=== PATIENT | female | born 2000 | race Caucasian/White ===

== ENCOUNTER 2021-07-31 15:57 | Emergency (ER) | payer BC ==
[2021-07-31] MEDS ORDERED: FAMOTIDINE 20 MG TABLET PO STA (16:13)
[2021-07-31] MEDS ORDERED: predniSONE 20 MG TABLET PO STA (16:13)
[2021-07-31] MEDS ORDERED: EPINEPHrine 1 MG/ML AMP IM STA (16:13)
--- NOTE | 2021-07-31 16:18 | ED Physician Documentation ---
History of Present Illness - Stated complaint Stated Complaint: NAUSEA,SOA - Chief complaint Chief Complaint: Allergic Rx - History obtained from History obtained from: Patient - Additonal information Additional information: 21-year-old with nut allergy ate some sorbet and developed a scratchy throat, mild shortness of breath and eye redness about 40 minutes ago. She has an EpiPen but did not use it as it is . She did take Benadryl prior to arrival. She got nauseous and vomited on the way here. Review of Systems Constitutional: denies: Fever, Chills Cardiac: denies: Chest pain / pressure, Palpitations Respiratory: reports: Dyspnea. denies: Cough GI: reports: Nausea, Vomiting. denies: Abdominal Pain PD PAST MEDICAL HISTORY - Present Medications Home Medications: Ambulatory Orders Medication Instructions Recorded Confirmed EPINEPHrine [Epinephrine] 0.3 mg IJ ONCE PRN #2 dis.syr 07/31/21 predniSONE [Deltasone] 60 mg PO DAILY 5 Days #15 tablet 07/31/21 - Allergies Allergies/Adverse Reactions: Allergies Allergy/AdvReac Type Severity Reaction Status Date / Time lactase [From Dairy Aid] Allergy Itching Verified 07/31/21 16:03 nut - unspecified Allergy Emesis Verified 07/31/21 16:03 PD ED PE NORMAL - Vitals Vital signs reviewed: Yes - General General: Alert and oriented X 3, No acute distress - HEENT HEENT: Pharynx benign, Other (Bilateral beet red conjunctivitis) - Neck Neck: Supple, no meningeal sign, No bony TTP - Cardiac Cardiac: RRR, No murmur - Respiratory Respiratory: No respiratory distress, Clear bilaterally - Abdomen Abdomen: Normal bowel sounds, Soft, Non tender - Back Back: No CVA TTP, No spinal TTP - Derm Derm: Normal color, Warm and dry - Extremities Extremities: No edema, No calf tenderness / cord - Neuro Neuro: Alert and oriented X 3, Normal speech Results - Vitals Vitals: Vital Signs - 24 hr 07/31/21 07/31/21 07/31/21 16:03 16:36 17:06 Temperature 37.0 C Heart Rate 98 93 95 Respiratory 18 13 18 Rate Blood Pressure 122/89 H 132/86 H 130/74 O2 Saturation 99 100 95 07/31/21 07/31/21 07/31/21 17:30 18:00 18:23 Temperature Heart Rate 101 H 119 H 110 H Respiratory 16 24 Rate Blood Pressure 130/72 125/72 O2 Saturation 99 100 Oxygen O2 Source Room air PD MEDICAL DECISION MAKING - ED course ED course: Given the conjunctivitis, airway symptoms but no finding and nausea and vomiting she does fit the criteria for anaphylaxis and was attended to immediately and given 0.3 mg of epinephrine IM as well as oral prednisone and Pepcid noting she had already taken Benadryl on the way here. Her conjunctivitis and other symptoms resolved and she was observed for few hours without recurrence. Departure - Departure Disposition: 01 Home, Self Care Clinical Impression: Anaphylaxis Qualifiers: Encounter type: initial encounter Qualified Code(s): T78.2XXA - Anaphylactic shock, unspecified, initial encounter Condition: Good Record reviewed to determine appropriate education?: Yes Instructions: ED Anaphylaxis General Prescriptions: predniSONE [Deltasone] 60 mg PO DAILY 5 Days #15 tablet EPINEPHrine [Epinephrine] 0.3 mg IJ ONCE PRN #2 dis.syr PRN Reason: Allergy Symptoms Comments: I sent your prescription electronically to [facility] in [place]. Discharge Date/Time: 07/31/21 18:32
[2021-07-31] MEDS ORDERED: EPINEPHrine 1 MG/ML AMP ONE (16:20)
[2021-07-31 18:10] VITALS: BP 125/72
== END 2021-07-31 18:32 | disposition home or self-care (01) ==
LOC: ED 15:57
DX: T78.2XXA Anaphylactic shock, unspecified, initial encounter (principal)
CPT/HCPCS: 96372; 99282; 99283; A9270; J7512